=== PATIENT | female | born 1990 | race Caucasian/White ===

== ENCOUNTER 2017-02-23 19:45 | Emergency (ER) | payer OTHER ==
[2017-02-23 20:05] VITALS: BP 109/60
--- NOTE | 2017-02-23 20:43 | ED ---
Influenza-Like Illness - HPI Summary HPI Summary: 26F presents with sore throat, cough and sinus congestion for a week. She states that her throat is bothering her the most. She denies any fever, ear pain, chest pain, or SOB. She states that her nephew was sick with similar symptoms this past week. She is a smoker. She has taken nyquil for her pain. She denies any abdominal pain, n/v/d. - History of Current Complaint Chief Complaint: EDUpperRespComplaint Time Seen by Provider: 02/23/17 20:32 - Allergy/Home Medications Allergies/Adverse Reactions: Allergies Allergy/AdvReac Type Severity Reaction Status Date / Time Sulfamethoxazole Allergy Unknown Verified 02/23/17 20:08 w/Trimethoprim Reaction [From Bactrim] Details PMH/Surg Hx/FS Hx/Imm Hx Endocrine/Hematology History: Denies: Hx Diabetes Cardiovascular History: Denies: Hx Hypertension Infectious Disease History: No Infectious Disease History: Denies: Traveled Outside the [place] in Last 30 Days - Family History Known Family History: Negative: Cardiac Disease Review of Systems Negative: Fever Positive: Sore Throat, Nasal Discharge. Negative: Ear Ache Negative: Chest Pain Positive: Cough. Negative: Shortness Of Breath Negative: Abdominal Pain, Vomiting, Diarrhea, Nausea All Other Systems Reviewed And Are Negative: Yes Physical Exam Triage Information Reviewed: Yes Vital Signs On Initial Exam: Initial Vitals Temp Pulse Resp BP Pulse Ox 97.9 F 79 16 109/60 100 02/23/17 20:00 02/23/17 20:00 02/23/17 20:00 02/23/17 20:00 02/23/17 20:00 Vital Signs Reviewed: Yes Appearance: Positive: Ill-Appearing Skin: Positive: Warm, Dry Head/Face: Positive: Normal Head/Face Inspection Eyes: Positive: Normal, Conjunctiva Clear ENT: Positive: Pharyngeal erythema, Nasal congestion, TMs normal. Negative: Tonsillar swelling, Tonsillar exudate Neck: Positive: Supple, Nontender, No Lymphadenopathy Respiratory/Lung Sounds: Positive: Clear to Auscultation, Breath Sounds Present Cardiovascular: Positive: Normal, RRR Abdomen Description: Positive: Nontender, Soft Bowel Sounds: Positive: Present Diagnostics - Vital Signs Vital Signs Temp Pulse Resp BP Pulse Ox 02/23/17 20:00 97.9 F 79 16 109/60 100 - Laboratory Lab Statement: Any lab studies that have been ordered have been reviewed, and results considered in the medical decision making process. Flu Symptom Course/Dx - Course Course Of Treatment: 26F presents with cough, sore throat, and sinus congestion for a week. states throat is bothering her the most. does not appear like strept , centor criteria 1. uvula midline, no trismus. chest xray normal. will treat supportatively for URI. patient understands and agrees with plan - Diagnoses Differential Diagnosis/HQI/PQRI: Positive: Bronchitis, Influenza, Pneumonia, Upper Respiratory Infection Provider Diagnoses: Upper respiratory infection Discharge - Discharge Plan Condition: Good Disposition: HOME Prescriptions: Benzonatate CAP* [Tessalon 100 MG CAP*] 100 mg PO TID #21 cap Fluticasone NASAL SPRAY 50MCG* [Flonase NASAL SPRAY 50MCG*] 2 spray BOTH NARES DAILY #1 btl Magic Mouth Was-DAYAMI/MAAL/LIDO* 5 ml SWISH SPIT QID #100 ml Patient Education Materials: Upper Respiratory Infection (ED) Forms: *Work Release Referrals: Shanice Barnes MD [Primary Care Provider] - Additional Instructions: Magic mouthwash can use 4x a day for sore throat Use intranasal steroid one spray each nostril twice a day Use Tessalon three times a day for cough Take Tylenol or ibuprofen for pain every 6 hours Can gargle salt water for throat Can use cough drops or products such as cloraseptic spray . Use saline spray in nose as much as needed Use humidifier in room or can use warm water in bowls Return to ED if develop chest pain , shortness of breath, or any new or worsening symptoms
--- NOTE | 2017-02-23 20:54 | RAD ---
INDICATION: Cough COMPARISON: July 21, 2009 TECHNIQUE: PA and lateral dual-energy views were obtained. FINDINGS: Bones/Soft Tissues: There are no acute bony findings. Cardiomediastinal: The cardiomediastinal silhouette is normal. Lungs: There are no infiltrates. Pleura: There are no pleural effusions. Other: None IMPRESSION: NORMAL CHEST.
[2017-02-23] MEDS ORDERED: Benzonatate CAP* 100 MG PO ONE (20:57)
== END 2017-02-23 21:27 | disposition home or self-care (01) ==
LOC: ED 19:45
DX: J06.9 Acute upper respiratory infection, unspecified (principal); J02.9 Acute pharyngitis, unspecified; R05 Cough
CPT/HCPCS: 71020; 99282; A9270-GY

== ENCOUNTER 2019-07-31 01:28 | Emergency (ER) | payer OTHER ==
--- NOTE | 2019-07-31 01:29 | ED ---
Throat Pain/Nasal Congestion - HPI Summary HPI Summary: 28 yo female presents with dental pain. She tells me that she knows she has bad teeth and for the last month has had pain in her right lower tooth. Over the last 3-4 days the pain has become much worse and tonight she noticed some swelling to the cheek. She has been taking tylenol/ibuprofen for discomfort with little relief. She is eating and drinking well. Denies fever, chills, vomiting. She does not have a dentist. - History of Current Complaint Time Seen by Provider: 07/31/19 01:29 Hx Obtained From: Patient Onset/Duration: Gradual Onset Severity: Severe - Allergies/Home Medications Allergies/Adverse Reactions: Allergies Allergy/AdvReac Type Severity Reaction Status Date / Time sulfamethoxazole Allergy Unknown Verified 07/31/19 01:34 [From Bactrim] Reaction Details trimethoprim [From Bactrim] Allergy Unknown Verified 07/31/19 01:34 Reaction Details PMH/Surg Hx/FS Hx/Imm Hx Endocrine/Hematology History: Denies: Hx Diabetes Cardiovascular History: Denies: Hx Hypertension Neurological History: Denies: Hx CVA, Hx Headaches, Hx Migraine Psychiatric History: Denies: Hx Anxiety, Hx Eating Disorder - Surgical History Surgical History: None - Family History Known Family History: Negative: Cardiac Disease - Social History Lives: Skilled Nursing Alcohol Use: Rare Substance Use Type: Reports: None Smoking Status (MU): Heavy Every Day Tobacco Smoker Review of Systems Constitutional: Negative Eyes: Negative Positive: Dental Pain Cardiovascular: Negative Respiratory: Negative Gastrointestinal: Negative Neurological: Negative Psychological: Normal All Other Systems Reviewed And Are Negative: No Physical Exam - Summary Physical Exam Summary: GENERAL: NAD. WDWN. No pain distress. SKIN: No rashes, sores, lesions, or open wounds. HEENT: Head: AT/NC Eyes: EOM intact. Conjunctiva clear without inflammation or discharge. Ears: Hearing grossly normal. TMs intact, no bulging, erythema, or edema. Nose: Nasal mucosa pink and moist. NTTP maxillary and frontal sinus. Throat: Posterior oropharynx without exudates, erythema, or tonsillar enlargement. Uvula midline. NECK: Supple. Nontender. No lymphadenopathy. CHEST: CTAB. No r/r/w. No accessory muscle use. Breathing comfortably and in no distress. CV: RRR. Without m/r/g. Pulses intact. Cap refill <2seconds NEURO: Alert. PSYCH: Age appropriate behavior. Triage Information Reviewed: Yes Vital Signs On Initial Exam: Vital Signs: Temp Pulse Resp BP Pulse Ox 97.9 F 92 18 119/76 98 07/31/19 01:30 07/31/19 01:30 07/31/19 01:30 07/31/19 01:30 07/31/19 01:30 Vital Signs Reviewed: Yes Dental: Positive: Percussion Tenderness @ - Tooth #30, Gross Decay/Caries @ - throughout, Abscess @ - Tooth #30. Negative: Dental Fracture @, Cellulitis @, Cervical Lymphadenopathy, Bleeding EENT Course/Dx - Course Course Of Treatment: Tooth #30 abscess. In the ED pt was given norco for her pain and clindamycin for the infection. Will rx for same and mouth rinse. Advised to continue ibuprofen and f/u with dentist within the next 2 weeks. istop:Reference #: [id number] - Diagnoses Provider Diagnoses: Dental abscess Discharge ED - Sign-Out/Discharge Documenting (check all that apply): Patient Departure Patient Received Moderate/Deep Sedation with Procedure: No - Discharge Plan Condition: Stable Disposition: HOME Prescriptions: Chlorhexidine MW 0.12% 473ML* [Peridex Mouth Wash 0.12%] 15 ml MT BID #1 bottle Clindamycin HCl 300 mg PO TID #21 capsule Hydrocodone/Acetaminophen [Crystal 5-325 Tablet] 1 each PO Q12H PRN #4 tablet MDD 2 PRN Reason: Pain - Severe Patient Education Materials: Dental Abscess (ED) Referrals: Shanice Barnes MD [Primary Care Provider] - Additional Instructions: If you develop a fever, shortness of breath, chest pain, new or worsening symptoms - please call your PCP or go to the ED immediately. I recommend that you see a dentist within 1-2 weeks for further treatment of your teeth - Billing Disposition and Condition Condition: STABLE Disposition: Home
[2019-07-31] MEDS ORDERED: HYDROcodone/ACETAMIN 5-325 MG* 1 TAB PO ONE (01:40)
[2019-07-31] MEDS ORDERED: Clindamycin CAP* 150 MG PO ONE (01:40)
[2019-07-31 01:53] VITALS: BP 0/0
== END 2019-07-31 01:52 | disposition home or self-care (01) ==
LOC: ED 01:28
DX: K04.7 Periapical abscess without sinus (principal); F17.200 Nicotine dependence, unspecified, uncomplicated; Z88.1 Allergy status to other antibiotic agents; Z88.2 Allergy status to sulfonamides
CPT/HCPCS: 99282; A9270-GY

== ENCOUNTER 2019-11-07 13:13 | Emergency (ER) | payer OTHER ==
[2019-11-07 13:20] VITALS: BP 113/70
--- NOTE | 2019-11-07 13:34 | UC ---
Knee Pain HPI - HPI Summary HPI Summary: awoke with right knee pain--no trauma---it fells like it is clicking when she walks - History of Current Complaint Chief Complaint: UCLowerExtremity Stated Complaint: RIGHT KNEE PAIN Time Seen by Provider: 11/07/19 13:17 Hx Obtained From: Patient Hx Last Menstrual Period: ablasion ?: No Onset/Duration: Sudden Onset Pain Intensity: 9 Pain Scale Used: 0-10 Numeric Character: Aching, Throbbing Aggravating Factor(s): Movement Alleviating Factor(s): Rest Associated Signs And Symptoms: Positive: Negative Able to Bear Weight: Yes - Allergies/Home Medications Allergies/Adverse Reactions: Allergies Allergy/AdvReac Type Severity Reaction Status Date / Time sulfamethoxazole Allergy Unknown Verified 11/07/19 13:20 [From Bactrim] Reaction Details trimethoprim [From Bactrim] Allergy Unknown Verified 11/07/19 13:20 Reaction Details PMH/Surg Hx/FS Hx/Imm Hx Previously Healthy: Yes - Surgical History Surgical History: None - Family History Known Family History: Negative: Cardiac Disease - Social History Occupation: Employed Full-time Lives: With Family Alcohol Use: Rare Substance Use Type: None Smoking Status (MU): Heavy Every Day Tobacco Smoker Review of Systems All Other Systems Reviewed And Are Negative: Yes Constitutional: Positive: Negative Skin: Positive: Negative Eyes: Positive: Negative ENT: Positive: Negative Respiratory: Positive: Negative Cardiovascular: Positive: Negative Gastrointestinal: Positive: Negative Genitourinary: Positive: Negative Motor: Positive: Negative Neurovascular: Positive: Negative Musculoskeletal: Positive: Arthralgia - right knee Neurological: Positive: Negative Psychological: Positive: Negative Is Patient Immunocompromised?: No Physical Exam Triage Information Reviewed: Yes Appearance: Well-Appearing, No Pain Distress, Well-Nourished Vital Signs: Initial Vital Signs Temp 98.7 F 11/07/19 13:14 Pulse 90 11/07/19 13:14 Resp 17 11/07/19 13:14 BP 113/70 11/07/19 13:14 Pulse Ox 99 11/07/19 13:14 Vital Signs Reviewed: Yes Eye Exam: Normal Eyes: Positive: Conjunctiva Clear ENT Exam: Normal ENT: Positive: Normal ENT inspection, Hearing grossly normal. Negative: Trismus , Muffled voice, Hoarse voice Neck exam: Normal Neck: Positive: Supple, Nontender Respiratory Exam: Normal Respiratory: Positive: Chest non-tender, No respiratory distress, No accessory muscle use Cardiovascular Exam: Normal Cardiovascular: Positive: RRR, Pulses Normal, Brisk Capillary Refill Musculoskeletal Exam: Normal Musculoskeletal: Positive: Strength Intact, ROM Intact, No Edema Neurological Exam: Normal Neurological: Positive: Alert, Muscle Tone Normal Psychological Exam: Normal Skin Exam: Normal Knee Pain Course/Dx - Course Course Of Treatment: ice, azam wrap ibuprofen follow with pcp prn - Differential Dx/Diagnosis Provider Diagnosis: Knee pain, right Discharge ED - Sign-Out/Discharge Documenting (check all that apply): Patient Departure All imaging exams completed and their final reports reviewed: No Studies - Discharge Plan Condition: Stable Disposition: HOME Prescriptions: Ibuprofen TAB* [Motrin TAB* 600 MG] 600 mg PO Q6H PRN #50 tab PRN Reason: Pain Patient Education Materials: Knee Pain (ED) Forms: *Work Release Referrals: Elias Zuñiga MD [Medical Doctor] - 4 Days - Billing Disposition and Condition Condition: STABLE Disposition: Home
== END 2019-11-07 13:52 | disposition home or self-care (01) ==
LOC: UCEAST 13:13
DX: M25.561 Pain in right knee (principal); F17.290 Nicotine dependence, other tobacco product, uncomplicated; Z88.2 Allergy status to sulfonamides
CPT/HCPCS: 99212; G0463